=== PATIENT | female | born 1935 | race Hispanic/Latino ===

== ENCOUNTER → 2019-02-13 | Outpatient (CLI) | payer OTHER | END | disposition home or self-care (01) | LOC: RAH 12:41 | PROVIDERS: ATTEND Internal Medicine | DX: M48.061 Spinal stenosis, lumbar region without neurogenic claudication (principal); M85.88 Other specified disorders of bone density and structure, other site; M41.86 Other forms of scoliosis, lumbar region; I70.0 Atherosclerosis of aorta; W19.XXXA Unspecified fall, initial encounter; Y93.89 Activity, other specified; Y92.89 Other specified places as the place of occurrence of the external cause; Y99.8 Other external cause status | CPT/HCPCS: 72100; 72170 ==